=== PATIENT | female | born 2005 | race Caucasian/White ===

== ENCOUNTER 2025-04-17 21:39 | Emergency (ER) | payer OTHER ==
[2025-04-17] MEDS ORDERED: CEFAZOLIN 2 GM VIAL ONE (22:26)
== END 2025-04-17 23:48 | disposition home or self-care (01) ==
LOC: BURERS 21:39
DX: L03.116 Cellulitis of left lower limb (principal)
CPT/HCPCS: 96372; 99282; J0692